=== PATIENT | male | born 1970 | race Caucasian/White ===

== ENCOUNTER 2020-03-07 15:03 | Emergency (ER) | payer OTHER ==
[~2020-03-07] VITALS: Ht 198.1 cm; Wt 113.4 kg
[2020-03-07 15:15] VITALS: BP 159/93
[2020-03-07] MEDS ORDERED: Ketorolac 30mg Inj IM ONE (15:15)
[2020-03-07] MEDS ORDERED: Methocarbamol 750mg tab ORAL ONE (15:30)
[2020-03-07 15:52] LABS: APPEARANCE,URINE CLEAR; BILIRUBIN, URINE NEGATIVE (NEGATIVE); GLUCOSE, URINE (UA) 1+ (NEGATIVE); KETONES,URINE NEGATIVE (NEGATIVE); LEUKOCYTE ESTERASE ,URINE NEGATIVE (NEGATIVE); NITRITE,URINE NEGATIVE (NEGATIVE); PH,URINE 6.5 (4.5-8.0); PROTEIN,URINE 2+ (NEGATIVE); UROBILINOGEN,URINE 4 MG/DL (0.0-1.0)
[2020-03-07 16:02] LABS: COLOR,URINE YELLOW
--- NOTE | 2020-03-07 17:01 | Diagnostic Imaging Report ---
Indications: Low back pain, trauma Technique: Spiral acquisitions obtained through the lumbar spine. Multiplanar reconstructions were generated. No IV contrast utilized. Total dose length product 385 mGycm. CTDIvol(s) 10 mGy. Dose reduction achieved using automated exposure control Comparison: none Findings: There is transitional anatomy, with a transitional lumbosacral segment referred to. As S1, 5 non rib-bearing lumbar-type vertebral bodies which will be referred to as L1-L5. There is slight anterior wedging of the L1 and L2 vertebral bodies which is probably developmental, exaggerated by degenerative remodeling. Vertebral body heights are otherwise preserved. There is very slight posterior offset of L2 on L3. The remainder of the bony alignment is normal. No acute fracture. No dislocation. There is minimal degenerative disc narrowing at L2-3. The remaining disc spaces are preserved. There is extensive degenerative proliferative spondylosis, as well as fairly extensive lower lumbar facet arthrosis. At L2-3, there are posterior osteophytes which do not significantly compromise the spinal canal. The neural foramina are preserved. At L3-4, there is circumferential annular bulge and ligamentum flavum hypertrophy, which results in borderline spinal stenosis at this level. There is also minimal right neural foraminal stenosis. At L4-5, posterior disc bulge/osteophyte complex results in minimal narrowing of the spinal canal. There is mild to moderate left neural foraminal stenosis. At L5-S1, no significant disc bulge or protrusion, spinal stenosis, or neural foraminal narrowing. There is a small right pleural effusion incidentally noted. There is edema of the lumbar region subcutaneous fat Impression: No acute bony trauma Degenerative changes, as detailed on a level by level basis above Right pleural effusion Edema of the lumbar region subcutaneous fat The CT scanner at [facility] is accredited by the [employer] and the scans are performed using protocols designed to limit radiation exposure to as low as reasonably achievable to attain images of sufficient resolution adequate for diagnostic evaluation.
[2020-03-07 17:13] VITALS: BP 152/92
--- NOTE | 2020-03-07 17:14 | Emergency Room Report ---
History of Present Illness General Chief Complaint: Back Pain-No Injury Source: Patient Present Illness HPI 49-year-old male with history of chronic back pain brought in by paramedics due to worsening low back pain that started today. Patient history is screaming in pain. However when placed in the room patient is pending and walking around when I entered the room complain of a 10 out of 10 pain and said that he cannot move. Patient was also eating a sandwich when he said that. Denies any urinary bowel incontinence. Denies chest pain shortness of breath, headache and dizziness. Denies drug use, tobacco smoke, alcohol intake. Denies taking any blood thinners. Patient keeps asking for morphine. 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 Patient History Past Medical History: see triage record Past Surgical History: none Pertinent Family History: none Immunizations: UTD Reviewed Nursing Documentation: PMH: Agreed; PSxH: Agreed Nursing Documentation-PMH Past Medical History: No Stated History Review of Systems All Other Systems: negative except mentioned in HPI Physical Exam Vital Signs Date Time Temp Pulse Resp B/P (MAP) Pulse Ox O2 Delivery O2 Flow Rate FiO2 03/07/20 15:04 98.6 105 18 166/95 (118) 96 Room Air Sp02 EP Interpretation: reviewed, normal General Appearance: no apparent distress, alert, GCS 15, non-toxic Head: normocephalic, atraumatic Eyes: bilateral eye normal inspection, bilateral eye PERRL ENT: hearing grossly normal, normal pharynx, no angioedema, normal voice Neck: full range of motion, supple/symm/no masses Respiratory: chest non-tender, lungs clear, normal breath sounds, speaking full sentences Cardiovascular #1: regular rate, rhythm, no edema Cardiovascular #2: 2+ carotid (R), 2+ carotid (L), 2+ radial (R), 2+ radial (L), 2+ dorsalis pedis (R), 2+ dorsalis pedis (L) Gastrointestinal: normal bowel sounds, non tender, soft, non-distended, no guarding, no rebound Genitourinary: no CVA tenderness Musculoskeletal: decreased range of motion, no calf tenderness, pelvis stable, gait/station normal, no lower extremity edema, non-tender Neurologic: alert, motor strength/tone normal, oriented x3, sensory intact, responsive, speech normal Psychiatric: judgement/insight normal, memory normal, mood/affect normal, no suicidal/homicidal ideation Skin: no rash Lymphatic: no adenopathy Medical Decision Making PA Attestation All diagnoses and treatment plans were reviewed and discussed with my supervising physician Dr. Stevens Homeless Attestation The treating physician has assessed and agrees that patient is medically stable for outpatient disposition Diagnostic Impression: Primary Impression: Chronic back pain ER Course 49-year-old male with history of chronic back pain brought in by paramedics due to worsening low back pain that started today. Patient history is screaming in pain. However when placed in the room patient is pending and walking around when I entered the room complain of a 10 out of 10 pain and said that he cannot move. Patient was also eating a sandwich when he said that. Denies any urinary bowel incontinence. Denies chest pain shortness of breath, headache and dizziness. Denies drug use, tobacco smoke, alcohol intake. Denies taking any blood thinners. Patient keeps asking for morphine. Ddx considered but are not limited to: Lumbar spine sprain, strain, fracture, contusion, neuropathy Vital signs: are WNL, pt. is afebrile H&PE are most consistent with: Chronic low back pain ORDERS: L-spine CT no contrast, Motrin, Tylenol ER intervention: Toradol, DISCHARGE: At this time pt. is stable for d/c to home. Will provide printed patient care instructions, and any necessary prescriptions. Care plan and follow up instructions have been discussed with the patient prior to discharge. Advised patient to follow primary care provider, take medication as directed, worsening symptoms return to the emergency room also follow-up with pain management. CT/MRI/US Diagnostic Results CT/MRI/US Diagnostic Results : Imaging Test Ordered: CT L-spine no contrast Impression Comparison: none Findings: There is transitional anatomy, with a transitional lumbosacral segment referred to. As S1, 5 non rib-bearing lumbar-type vertebral bodies which will be referred to as L1-L5. There is slight anterior wedging of the L1 and L2 vertebral bodies which is probably developmental, exaggerated by degenerative remodeling. Vertebral body heights are otherwise preserved. There is very slight posterior offset of L2 on L3. The remainder of the bony alignment is normal. No acute fracture. No dislocation. There is minimal degenerative disc narrowing at L2-3. The remaining disc spaces are preserved. There is extensive degenerative proliferative spondylosis, as well as fairly extensive lower lumbar facet arthrosis. At L2-3, there are posterior osteophytes which do not significantly compromise the spinal canal. The neural foramina are preserved. At L3-4, there is circumferential annular bulge and ligamentum flavum hypertroph y, which results in borderline spinal stenosis at this level. There is also minimal right neural foraminal stenosis. At L4-5, posterior disc bulge/osteophyte complex results in minimal narrowing of the spinal canal. There is mild to moderate left neural foraminal stenosis. At L5-S1, no significant disc bulge or protrusion, spinal stenosis, or neural foraminal narrowing. There is a small right pleural effusion incidentally noted. There is edema of the lumbar region subcutaneous fat Impression: No acute bony trauma Degenerative changes, as detailed on a level by level basis above Right pleural effusion Edema of the lumbar region subcutaneous fat Last Vital Signs Date Time Temp Pulse Resp B/P (MAP) Pulse Ox O2 Delivery O2 Flow Rate FiO2 03/07/20 17:13 98.6 71 19 152/92 97 Room Air Disposition: HOME, SELF-CARE Condition: Stable Scripts Acetaminophen (Tylenol) 325 Mg Tablet 650 MG ORAL Q6H PRN for Prn Pain/Headache/Temp > 101, #30 TAB 0 Refills Prov: Maricarmen Wilson 03/07/20 Ibuprofen* (MOTRIN*) 600 Mg Tablet 600 MG ORAL Q6H PRN for For Pain, #30 TAB 0 Refills Prov: Maricarmen Wilson 03/07/20 Referrals: [facility],REFERR[facility] (PCP) Patient Instructions: Back Pain, Adult Additional Instructions: Take medication as directed, follow primary care provider, if worsening symptoms return to the emergency room Maricarmen Wilson Mar 07, 2020 17:14
[2020-03-07] MEDS ORDERED: IBUPROFEN600 M1 ORAL (17:15)
[2020-03-07] MEDS ORDERED: TYLENOL325 MG ORAL (17:15)
[2020-03-07 17:46] VITALS: BP 114/76
== END 2020-03-07 17:44 | disposition home or self-care (01) ==
LOC: EDBD 15:03 → EMR 16:40
DX: G89.29 Other chronic pain (principal); M54.5 Low back pain
CPT/HCPCS: 72131; 81003; 96372; J1885; Z7502; 99284